=== PATIENT | male | born 1990 | race Caucasian/White ===

== ENCOUNTER 2016-03-27 18:44 | Emergency (ER) | payer OTHER | END 2016-03-27 21:19 | disposition home or self-care (01) | DX: S53.31XA Traumatic rupture of right ulnar collateral ligament, initial encounter (principal); S60.011A Contusion of right thumb without damage to nail, initial encounter; W21.06XA Struck by volleyball, initial encounter; Y93.68 Activity, volleyball (beach) (court) ==